=== PATIENT | female | born 1975 | race Caucasian/White ===

== ENCOUNTER 2020-02-12 13:14 | Outpatient (CLI) | payer BC, SELFPAY ==
[2020-02-12 13:27] LABS: Hemoglobin 12.8 g/dL (12.0-15.0); Mean Corpuscular HGB Conc 32.8 g/dL (32.0-36.0); Mean Corpuscular Hemoglobin 30.8 pg (27.0-31.0); Mean Platelet Volume 9.4 fl (9.2-11.8); Platelet Count Result 314 K/mm3 (150-420); Red Blood Count 4.15 M/mm3 (4.20-5.40); White Blood Count 7.2 K/mm3 (4.8-10.8)
[2020-02-12 14:06] LABS: BNP < 5 pg/mL (0-100)
[2020-02-12 15:31] LABS: Alanine Aminotransferase 24 U/L (14-59); Albumin Level 3.8 g/dL (3.4-5.0); Alkaline Phosphatase 83 U/L (46-116); Aspartate Amino Transferase 18 U/L (15-37); Bilirubin,Total 0.1 mg/dL (0.00-1.00); Blood Urea Nitrogen 17 mg/dL (7-18); Creatine Kinase 138 U/L (26-192); Estimated Glomerular Filt Rate > 60; Glucose 73 mg/dL (70-99); Lipase 95 U/L (73-393); Total Protein 6.8 g/dL (6.4-8.2)
[2020-02-12 15:32] LABS: Carbon Dioxide 31 mmol/L (21-32)
[2020-02-12 16:27] LABS: Basophils Absolute Auto 0.03 K/mm3 (0.00-0.10); Basophils Percent Auto 0.4 % (0.0-1.0); Eosinophils Absolute Auto 0.27 K/mm3 (0.02-0.50); Eosinophils Percent Auto 3.8 % (1.0-6.0); Immature Granulocyte Absolute 0.03 K/mm3 (0.00-0.00); Immature Granulocyte Percent A 0.4 % (0.0-0.0); Lymphocytes Absolute Auto 1.69 K/mm3 (1.10-4.50); Monocytes Absolute Auto 0.96 K/mm3 (0.10-0.90); Monocytes Percent Auto 13.6 % (2.0-11.0); Neutrophils Absolute Auto 4.1 K/mm3 (1.7-7.2); Neutrophils Percent Auto 57.8 % (50.0-70.0)
[2020-02-12 17:40] LABS: Anion Gap 11.2 mmol/L (7-16); Chloride 103 mmol/L (98-108); Osmolality Calculated 292 mOsm/kg (285-295); Potassium 4.2 mmol/L (3.5-5.1); Sodium 141 mmol/L (136-145)
== END 2020-02-12 13:15 | disposition home or self-care (01) ==
LOC: CHSLAB 13:16
PROVIDERS: PCP Family Medicine; Visit Provider Family Medicine
DX: R10.9 Unspecified abdominal pain (principal)
CPT/HCPCS: 36415; 80053; 82550; 83690; 83880; 85025; 85027

== ENCOUNTER 2020-02-12 15:47 | Emergency (ER) | payer BC, SELFPAY ==
--- NOTE | ~2020-02-12 | CT_ITS ---
EXAMINATION: CT abdomen pelvis w con EXAM DATE: 02/12/2020 17:09 INDICATION: Intermittent diffuse abdominal pain. Forms in stool. Right hip pain, nausea. TECHNIQUE: Spiral CT of the abdomen and pelvis was performed following intravenous injection of 100 m L Omnipaque 350. Axial, coronal and sagittal images were reviewed. The dose-length product (DLP) fo r this examination was 483.32 mGy-cm. The exposure was tailored according to patient size (auto mA e xposure control), and iterative reconstruction (ASIR) was used as additional dose reduction technique . Comparison is made to prior examination from 07/03/2008. FINDINGS: The liver, spleen, adrenal glands and pancreas are unremarkable. The gallbladder is contra cted but otherwise unremarkable. Portal and splenic veins are patent. Kidneys enhance symmetrically . There is no hydronephrosis. The uterus is not identified and has likely been surgically resected . The bladder is unremarkable. There is no retroperitoneal or pelvic lymphadenopathy. The appendix is not positively visualized. There is no pericecal inflammatory change to suggest appe ndicitis. The stomach and small bowel are unremarkable. There is moderate to large amount of colon ic stool in the ascending and transverse colon. No free intraperitoneal gas. The heart is normal in size. There are no pericardial or pleural effusions. The lung bases are unremarkable. There are no osteoblastic or osteolytic lesions identified. Unremarkable right hip. Mild lumbar levoscoliosis . IMPRESSION: 1. Moderate to large amount of ascending, transverse colonic stool. 2. No acute intra-abdominal findings. Reviewed, dictated and finalized at location [facility].
[2020-02-12 16:00] VITALS: BP 139/78; PULSE 99; RESP 18; TEMP 36.7; O2SAT 94
--- NOTE | 2020-02-12 16:05 | ED.ABDPAIN ---
HPI - Abdominal Pain General Chief Complaint: Abdominal Pain Stated Complaint: sent from doctor, stomach pain,worms in stool Time Seen by Provider: 02/12/20 16:06 Source: patient Mode of arrival: ambulatory Limitations: no limitations History of Present Illness HPI narrative: 44-year-old man comes in today complaining of abdominal pain and a sensation that things are moving her abdomen that has been present off and on for last 2 months. Patient states that she has had 2 episodes where she passed what looks like worms that were approximately 4-6 inches long on and were brown green in color. She denies fever, chills, vomiting, hematemesis, hematochezia or melena. She denies dysuria hematuria. She denies drinking untreated water, travel. she states that some family members with whom she does not share living quarters have described forms in her stools as well. She has been prescribed mebendazole and is awaiting approval. She states that she took methamphetamines orally yesterday in order to treat herself. MD elicited complaint: abdominal pain Onset (ago): month(s) (1-2) Pain Consistency: intermittent Location: RLQ Severity: moderate Quality: cramping Radiation: none Migration to: no migration Exacerbating factors: nothing Relieving factors: nothing Associated symptoms: nausea Related Data Home Medications Medication Instructions Recorded Confirmed buprenorphine-naloxone 1.5 film SUBLINGUAL DAILY 02/12/20 02/12/20 Allergies Allergy/AdvReac Type Severity Reaction Status Date / Time No Known Allergies Allergy Mild Verified 02/12/20 11:58 Review of Systems Constitutional: Constitutional: Denies chills and Denies fever(s) Eyes: Eyes: Denies change in vision and Denies photophobia ENT: Denies dysphagia, Denies nasal congestion and Denies sore throat Cardiovascular: Cardiovascular: Denies chest pain and Denies radiating jaw, neck or arm pain Respiratory: Respiratory: Denies cough, Denies dyspnea and Denies wheezing Gastrointestinal: Gastrointestinal: Reports abdominal pain, Denies diarrhea, Reports nausea and Denies vomiting Genitourinary: Genitourinary: Denies hematuria, Denies nocturia and Denies dysuria Musculoskeletal: Musculoskeletal: Denies back pain, Denies arthralgias and Denies joint swelling Integumentary/Breasts: Skin/Breast: Reports pruritus, Denies erythema and Reports rash ( Periodic itching and red rash) Neurologic: Denies vertigo, Denies dizziness and Denies syncope Psychiatric: Psychiatric: Reports anxiety Hematologic/Lymphatic: Hematologic/Lymphatic: Denies easy bleeding and Denies easy bruising Allergic/Immunologic: Allergic/Immunologic: Denies lip swelling and Denies wheezing PMFSH Past Medical History Medical History COPD (chronic obstructive pulmonary disease) Depression Neuropathy Surgical History Surgical History History of abdominoplasty History of hysterectomy History of umbilical hernia repair Social History Social History Smoking status: Current every day smoker Tobacco type: cigarettes Substance use type: methamphetamine Other substance usage details: Was in custodial for 6 months for substance abuse. Exam Const: General: healthy appearing and alert Orientation/consciousness: patient oriented x3 Other: mild acute distress HENMT: Ears: external ears normal, TM's normal bilaterally and EAC's normal Mouth: Yes Normal oral and palatal mucosa present and Yes moist mucous membranes Throat: posterior oropharynx normal and uvula midline Eyes: Conjunctivae: conjunctivae normal Pupils: Equal, round and reactive pupils present EOM: EOMs intact bilaterally Resp: Effort & Inspection: normal respiratory effort and not labored Auscultation: clear to auscultation bilaterally, no rales, no rhonchi and no w
--- NOTE | 2020-02-12 16:28 | PC.NURSE ---
RN TOOK PT TO BATHROOM AT THIS TIME IN ATTEMPTS TO COLLECT ORDERED URINE SAMPLE AND ORDERED STOOL SAMPLE.
[2020-02-12 17:00] LABS: Appearance Urine Clear (Clear); Bilirubin Urine Negative (Negative); Color Urine Yellow (Yellow); Glucose Urine UA Negative (Negative); Ketones Urine Negative (Negative); Leukocyte Esterase Ur Negative LEU/UL (Negative); Nitrate Urine Negative (Negative); Protein Urine Negative (Negative); Specific Grav Ur 1.025 (1.010-1.020); Urobilinogen Urine 0.2 mg/dL (0.2-1.0); pH Urine 6.5 (5.0-8.0)
[2020-02-12 17:05] LABS: Add Urine Microscopic? YES; Bacteria Urine Trace /hpf; Blood Urine Trace-Intact (Negative); RBC Urine None seen /hpf (0-2); Squamous Epithelial Cell Urine Rare /hpf (Few); WBC Urine None seen /hpf (0-3)
[2020-02-12 17:15] LABS: Amphetamine Screen Urine Positive (Negative); Barbiturate Screen Urine Negative (Negative); Benzodiazepines Screen Urine Negative (Negative); Cannabinoid Screen Urine Negative (Negative); Cocaine Screen Urine Negative (Negative); Methadone Screen Urine Negative (Negative); Opiate Screen Urine Negative (Negative); Phencyclidine Screen Urine Negative (Negative)
[2020-02-12 17:41] VITALS: PULSE 101; RESP 20; O2SAT 95
== END 2020-02-12 17:47 | disposition home or self-care (01) ==
PROVIDERS: Emergency Provider Emergency Medicine; PCP Family Medicine
DX: R10.9 Unspecified abdominal pain (principal); F17.200 Nicotine dependence, unspecified, uncomplicated
CPT/HCPCS: 74177; 80307; 81001; 99282; 99284; Q9965

== ENCOUNTER 2020-07-04 02:04 | Emergency (ER) | payer OTHER, SELFPAY ==
[2020-07-04 02:10] VITALS: BP 122/75; PULSE 100; RESP 20; TEMP 36.8; O2SAT 97
--- NOTE | 2020-07-04 02:14 | ED.ABDPAIN ---
HPI - Abdominal Pain General Chief Complaint: Abdominal Pain Stated Complaint: adominal pain Source: patient Mode of arrival: EMS Limitations: no limitations History of Present Illness HPI narrative: Katarzyna is a 44F with a PMH of COPD, neuropathy, depression, several abdominal/pelvic surgeries, GI parasite infection and polysubstance abuse that presented to the ED with non-specific abdominal pain. She was lying down around midnight when she started having non-specific abdominal pain. She had a cramping pain in her abdomen that came and went and started to radiate to her left chest and left neck. It started to get worse and was associated with nausea but no vomiting. No SOB, dizziness, syncope, diarrhea, or dysuria. However, she reports cramping in her legs and feeling weird all over. Of note she has been struggling with a GI parasite infection. She was unable to complete a course of treatment due to insurance issues and she missed a GI consult do to [facility] quarantine. Related Data Home Medications Medication Instructions Recorded Confirmed buprenorphine-naloxone [Suboxone] 1 film BUCCAL Q24H 07/04/20 07/04/20 gabapentin 600 mg PO TID 07/04/20 07/04/20 Allergies Allergy/AdvReac Type Severity Reaction Status Date / Time No Known Allergies Allergy Verified 07/04/20 02:20 Review of Systems Constitutional: Constitutional: Denies chills, Reports fatigue and Denies fever(s) Eyes: Eyes: Reports no additional eye complaints ENT: Reports system reviewed and no additional complaints, except as documented Cardiovascular: Cardiovascular: Reports chest pain, Denies rapid heart rate and Reports radiating jaw, neck or arm pain Respiratory: Respiratory: Reports no additional respiratory complaints Gastrointestinal: Gastrointestinal: Reports as per HPI Genitourinary: Genitourinary: Reports no additional female genitourinary complaints Musculoskeletal: Musculoskeletal: Reports no additional musculoskeletal complaints Integumentary/Breasts: Skin/Breast: Reports system reviewed and no additional complaints, except as docu Neurologic: Reports system reviewed and no additional complaints, except as documented Psychiatric: Psychiatric: Reports no additional psychiatric complaints Endocrine: Endocrine: Reports no additional endocrine complaints Hematologic/Lymphatic: Hematologic/Lymphatic: Reports no additional hematologic/lymphatic complaints Allergic/Immunologic: Allergic/Immunologic: Reports no additional allergic/immunologic complaints Exam Const: General: no acute distress and alert Orientation/consciousness: patient oriented x3 Limitations: No altered mental status HENMT: Other: Normocephalic, atraumatic, EOMI Eyes: Conjunctivae: conjunctivae normal Pupils: Equal, round and reactive pupils present Neck: Neck: normal visual inspection Chest: Chest palpation & inspection: normal inspection of the chest Resp: Effort & Inspection: normal respiratory effort and not labored Auscultation: clear to auscultation bilaterally Cardio: Rate: regular rate Rhythm: regular rhythm Heart sounds: no murmurs GI: Other: Soft but diffusely TTP with the worst tenderness being in the epigastric region. No rebound tenderness or guarding. Negative cyr sign. Normal bowel sounds throughout the abdomen. : General: Yes no CVA tenderness Skin: General skin exam: normal color Rashes: no rashes Neuro: General: patient oriented x3 and moves all extremities Extrem: General: normal to inspection Psych: Appearance: grossly normal Mental Status: mental status grossly normal Affect: Anxious affect present Course Course Emergency Course: Katarzyna was evaluated. Labs were ordered as below as well as an EKG, UA and UDS. Further history revealed that she had been dabbing earlier this evening. She also reported that she has had significant constipation. She will frequently go a couple days without a BM. When she does have one it is ve
--- NOTE | 2020-07-04 02:33 | ECG_ITS ---
Measurements Intervals [place] Rate: 73 P: 84 NE: 178 QRS: 89 QRSD: 99 T: 79 QT: 367 QTc: 405 Interpretive Statements SINUS RHYTHM NORMAL ECG Electronically Signed On 07-04-2020 8:43:21 CDT by Raza Foy D.O.
[2020-07-04 02:42] LABS: Basophils Absolute Auto 0.04 K/mm3 (0.00-0.10); Basophils Percent Auto 0.5 % (0.0-1.0); Eosinophils Absolute Auto 0.22 K/mm3 (0.02-0.50); Eosinophils Percent Auto 2.9 % (1.0-6.0); Hemoglobin 13.8 g/dL (12.0-15.0); Immature Granulocyte Absolute 0.01 K/mm3 (0.00-0.00); Immature Granulocyte Percent A 0.1 % (0.0-0.0); Lymphocytes Absolute Auto 1.93 K/mm3 (1.10-4.50); Lymphocytes Percent Auto 25.1 % (18.0-42.0); Mean Corpuscular HGB Conc 32.9 g/dL (32.0-36.0); Mean Corpuscular Volume 91.3 fL (78.0-102.0); Mean Platelet Volume 10.1 fl (9.2-11.8); Monocytes Absolute Auto 0.93 K/mm3 (0.10-0.90); Monocytes Percent Auto 12.1 % (2.0-11.0); Neutrophils Absolute Auto 4.6 K/mm3 (1.7-7.2); Neutrophils Percent Auto 59.3 % (50.0-70.0); Platelet Count Result 276 K/mm3 (150-420); Red Cell Distribution Width 11.6 % (11.6-14.4); White Blood Count 7.7 K/mm3 (4.8-10.8)
[2020-07-04 02:57] LABS: INR 1.1; Prothrombin Time 11.4 Seconds (9.64-11.0)
[2020-07-04 03:01] LABS: Alanine Aminotransferase 20 U/L (14-59); Albumin Level 3.7 g/dL (3.4-5.0); Alkaline Phosphatase 86 U/L (46-116); Anion Gap 9 mmol/L (8-16); Aspartate Amino Transferase 13 U/L (15-37); Bilirubin,Total 0.2 mg/dL (0.00-1.00); Blood Urea Nitrogen 8 mg/dL (7-18); Calcium 8.8 mg/dL (8.5-10.1); Carbon Dioxide 27 mmol/L (21-32); Chloride 103 mmol/L (98-108); Estimated CRCL calculation 63 ml/min; Estimated Glomerular Filt Rate > 60; Glucose 137 mg/dL (70-99); Lipase 63 U/L (73-393); Osmolality Calculated 288 mOsm/kg (285-295); Potassium 4.1 mmol/L (3.5-5.1); Sodium 139 mmol/L (136-145); Total Protein 7.1 g/dL (6.4-8.2)
[2020-07-04 03:15] LABS: BNP 7.5 pg/mL (0-100); Ethanol < 3 mg/dL (0-6); Troponin I < 0.02 ng/mL (0.00-0.056)
[2020-07-04] MEDS: MAG HYDROX/ALUMINUM HYD/SIMETH 30 ML, PHENobarb/HYOSCY/ATROPINE/SCOP 32.4 MG, LIDOCAINE... PO (03:24)
[2020-07-04 03:25] VITALS: BP 125/73; PULSE 89; RESP 18; TEMP 36.6; O2SAT 98
== END 2020-07-04 03:30 | disposition home or self-care (01) ==
PROVIDERS: Emergency Provider Family Medicine; PCP Family Medicine
DX: K59.00 Constipation, unspecified (principal); K29.70 Gastritis, unspecified, without bleeding
CPT/HCPCS: 36415; 80053; 80307; 83690; 83880; 84484; 85025; 85610; 93005; 99283; 99284; A9270

== ENCOUNTER 2020-07-16 11:06 | Outpatient (CLI) | payer OTHER, SELFPAY ==
--- NOTE | ~2020-07-16 | US_ITS ---
US abdomen complete DATE: 07/16/2020 12:04 INDICATION: Abdominal pain TECHNIQUE: Real-time imaging and Doppler analysis of the abdomen COMPARISON: 02/12/2020 CT abdomen pelvis FINDINGS: No hepatic or pancreatic space-occupying mass lesion is evident. There is hepatopedal vinnie l venous flow direction. There is no evidence of gallstones or gallbladder wall thickening or abnorma l pericholecystic fluid collection. Negative sonographic Sanders's sign. The common bile duct measures 4 mm, normal. The right kidney measures 10.3 cm length. The left kidney measures approximately 9.5 cm length. No re nal mass lesion or hydronephrosis. Normal splenic size. Normal caliber of the abdominal aorta. The inferior vena cava is unremarkable. IMPRESSION: No significant abnormality Reviewed, dictated and finalized at [facility]. Reviewed, dictated and finalized at location B. IMPRESSION: No significant abnormality
== END 2020-07-16 11:07 | disposition home or self-care (01) ==
LOC: CHSIMG 11:08
PROVIDERS: PCP Nurse Practitioner Family; Visit Provider Nurse Practitioner Family
DX: R10.9 Unspecified abdominal pain (principal)
CPT/HCPCS: 76700

== ENCOUNTER 2021-03-11 17:41 | Outpatient (CLI) | payer OTHER, SELFPAY | END 2021-03-11 17:42 | disposition home or self-care (01) | LOC: CHSLAB 17:43 | PROVIDERS: PCP Family Medicine; Visit Provider Nurse Practitioner Family | DX: R10.9 Unspecified abdominal pain (principal); Z86.19 Personal history of other infectious and parasitic diseases | CPT/HCPCS: 87045; 87046; 87177; 87209; 87427 ==